=== PATIENT | female | born 1995 | race Two or more races ===

== ENCOUNTER → 2019-11-06 | Outpatient (CLI) | payer OTHER ==
--- NOTE | 2019-11-06 16:24 | RAD ---
INDICATION: Knee pain COMPARISON: March 2018 IMPRESSION: Bilateral knees: Standing view of bilateral knees as well as additional 2 view of bilateral knees obtained. Small bilateral joint effusion. No evidence of acute fracture or dislocation. Electronically signed by: Byron Davies MD (11/06/2019 4:21 PM) [id number]
== END | disposition home or self-care (01) ==
LOC: DXRAD 15:39
PROVIDERS: ATTEND Orthopaedic Surgery
DX: M25.462 Effusion, left knee (principal); M25.461 Effusion, right knee
CPT/HCPCS: 73560; 73565